=== PATIENT | male | born 2000 | race Two or more races ===

== ENCOUNTER 2022-01-27 10:25 | Emergency (ER) | payer OTHER, SELFPAY ==
[2022-01-27 10:51] VITALS: BP 119/74; PULSE 63; RESP 18; TEMP 36.6; O2SAT 99; BMI 23.6
--- NOTE | 2022-01-27 11:34 | ED.HEATRA ---
HPI - Head Injury General Chief complaint: Head Injury Stated complaint: Head Injury 01/27/22 Time Seen by Provider: 01/27/22 11:00 Source: patient Mode of arrival: ambulatory Limitations: no limitations History of Present Illness HPI Narrative: Patient presents emergency department for evaluation after head injury. He reports that 2 days ago he was going through a door to gain access to room for the building. States this door was small and he subsequently struck his head onto the metal frame of the door. Initially he was very dizzy afterwards, denies any loss of consciousness, denies any use of anticoagulants. He sustained a lump to the head which he reports has since resolved. He has had an intermittent headache since the event. Denies any nausea or vomiting. Denies vision changes. Denies neck pain. Review of Systems Review of Systems: Constitutional : No Fever, No Chills, No Fatigue ENT/Mouth : No sore throat, No Rhinorrhea Eyes: No Eye Pain, No Swelling, No Redness Cardiovascular : No Chest Pain, No SOB, No Dyspnea on Exertion Respiratory : No Cough, No Sputum Gastrointestinal : No Nausea, No Vomiting, No Diarrhea, No abdominal Pain Genitourinary : No Dysuria, No Urinary Frequency, No Hematuria, Musculoskeletal : No joint pain, No Myalgias, No Joint Swelling Skin : No Skin Lesions, No rash Neuro : No Weakness, No Numbness, No Dizziness, positive Headache Psych : No Anxiety/Panic, No Depression Heme/Lymph: No Bruising, No Bleeding,No Lymphadenopathy Endocrine : No Polyuria, No Polydipsia PMFSH Past Medical History Attestation statement: The following information was validated with the patient. Source: old records reviewed Social History Social History Advance Directives: No Advance Directives Information Provided: Yes Physical Exam Vital Signs: Vital Signs: Last Vital Signs Temp 98 F 01/27/22 10:51 Pulse 63 01/27/22 10:51 Resp 18 01/27/22 10:51 BP 119/74 01/27/22 10:51 Pulse Ox 99 01/27/22 10:51 O2 Del Method 01/27/22 10:51 BMI result Body Mass Index 23.6 Appearance: Alert.?Oriented to person, place and time. No acute distress.?Normal affect. Head: Normocephalic, atraumatic Eyes: Pupils equal, round and reactive to light. EOMI. Conjunctiva and sclera normal? No Wilkes sign noted. No raccoon eyes noted ENT: No septal hematoma, nares patent bilaterally. External auditory canal normal tympanic membrane pearly thompson and intact bilaterally. Neck: Normal inspection.? Neck supple.??No palpable tenderness, step-off, deformities. CVS: Heart sounds normal. Normal heart rate and rhythm.? Pulses normal.?? Respiratory: No respiratory distress.? Lung sounds clear to auscultation bilaterally?? Abdomen: Soft and non-tender. ? Skin: Skin warm and dry.? Normal skin color.? Extremities: No lower extremity edema.? Neuro: Moves all extremities spontaneously. Sensation intact bilaterally. CN II-XII intact. No focal neuro deficits. Course Course Course Narrative: Patient is a 21-year-old male presenting to the emergency department for evaluation after head injury that he sustained 2 days previously. He is alert, oriented, speaking clear full sentences, ambulatory with a steady gait. No focal neurological deficits. Continues to have an intermittent headaches since the event. Low suspicion for ICH/SAH at this time, would defer CT imaging of the head. Symptoms consistent with concussion. This advised rest avoidance of prolonged bleeding time acetaminophen/ibuprofen as needed for. Reviewed worrisome signs and symptoms to return back to the emergency department for. All questions were answered, patient was discharged home in stable condition. [facility] - Head Injury Medical Records Attestation: I reviewed the patient's medical records. Discharge Plan Discharge Clinical Impression: Concussion without loss of consciousness Patient Disposition: Home, Self-Care Instructions: Concussion (ED) Additional Instructions: You can take ibuprofen 200 mg, 3 tablets (600mg) every 6-8 hours as needed for pain, in addition to Tylenol 500 mg, 2 tablets (1,000mg) every 4-6 hours as needed for pain, but not to exceed 3 doses daily (3,000mg).? Return to the emergency department any new or worsening symptoms or concerns Follow-up their primary care provider as needed Stand Alone Forms: Work/School Release
== END 2022-01-27 12:09 | disposition home or self-care (01) ==
PROVIDERS: Emergency Provider Emergency Medicine
DX: S06.0X0A Concussion without loss of consciousness, initial encounter (principal); R51.9 Headache, unspecified; Y29.XXXA Contact with blunt object, undetermined intent, initial encounter; Y93.9 Activity, unspecified; Y92.9 Unspecified place or not applicable; Y99.9 Unspecified external cause status
CPT/HCPCS: 99282